=== PATIENT | female | born 2000 | race Caucasian/White ===

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

== ENCOUNTER 2021-09-10 23:08 | Emergency (ER) | payer OTHER ==
[2021-09-10 23:20] VITALS: BP 111/76; PULSE 80; TEMP 99.5; BMI 28.9
[2021-09-11] MEDS ORDERED: SODIUM CHLORIDE 0.9% 500 ML INFUS.BAG IV ONE (00:08)
[2021-09-11] MEDS ORDERED: ONDANSETRON 4 MG/2 ML VIAL IVPUSH ONE (00:08)
[2021-09-11] MEDS ORDERED: ONDANSETRON 4 MG/2 ML VIAL ONE (00:43)
[2021-09-11 01:44] LABS: HEMOGLOBIN 12.5 GM/dL (10.7-15.3)
[2021-09-11 01:46] LABS: BASO % 0.2 % (0-2.0); EOS % 1.9 % (0-4.5); EPI CELLS 22 /uL (0-25.1); HCG,QUALITATIVE URINE Negative; HEMATOCRIT 36.8 % (32.4-45.2); HYALINE CASTS 4 /uL (0-3.1); LYMPH % 17.5 % (8-40); MCH 27.3 pg (25.7-33.7); MCHC 33.9 g/dl (32.0-36.0); MEAN CELL VOLUME 80.7 fl (80-96); MEAN PLT VOLUME 7.1 fl (7.5-11.1); MONO % 6.2 % (3.8-10.2); NEUT % 74.2 % (42.8-82.8); PLATELET COUNT 399 10^3/uL (134-434); RBC 4.57 M/mm3 (3.60-5.2); RDW 16.3 % (11.6-15.6); URINE APPEARANCE CLOUDY; URINE BACTERIA 322 /uL (0-1359); URINE BILIRUBIN 1+ (NEGATIVE); URINE COLOR DK YELLOW; URINE GLUCOSE (UA) NEGATIVE (NEGATIVE); URINE KETONE 1+ (NEGATIVE); URINE LEUK ESTERASE TRACE (NEGATIVE); URINE NITRITE NEGATIVE (NEGATIVE); URINE PROTEIN TRACE (NEGATIVE); URINE RBC 16 /uL (0-23.9); URINE UROBILINOGEN 4.0 E.U/dl mg/dL (0.2-1.0); URINE WBC 14 /uL (0-25.8); WHITE BLOOD COUNT 12.9 K/mm3 (4.0-10.0)
[2021-09-11 02:02] LABS: CALCIUM 8.7 mg/dL (8.5-10.1)
[2021-09-11 02:03] LABS: ALBUMIN 3.9 g/dl (3.4-5.0); BLOOD UREA NITROGEN 9.2 mg/dL (7-18)
[2021-09-11 02:06] LABS: CREATININE 0.6 mg/dL (0.55-1.3)
[2021-09-11 02:07] LABS: BILIRUBIN,TOTAL 1.2 mg/dL (0.2-1); TOT PROT 7.6 g/dl (6.4-8.2)
== END 2021-09-11 02:47 | disposition home or self-care (01) ==
LOC: JER 23:08
PROC: 3E033GC Introduction of Other Therapeutic Substance into Peripheral Vein, Percutaneous Approach (ICD-10-PCS; principal; 2021-09-10)
DX: U07.1 COVID-19 (principal)
CPT/HCPCS: 36415; 80053; 81003; 83690; 84703; 85025; 87086; 99284-25